=== PATIENT | male | born 1970 | race Caucasian/White ===

== ENCOUNTER 2020-06-01 14:36 | Emergency (ER) | payer MEDICARE, MEDICAID ==
[~2020-06-01 14:36] MED LIST: DICY10CA88 PO; OMEP20CA15 PO
[2020-06-02] MEDS ORDERED: POTA20PA40 PO (14:06)
[2020-06-02] MEDS ORDERED: CARV3.122 PO (14:06)
[2020-06-02] MEDS ORDERED: FURO-150 PO (14:06)
== END 2020-06-01 15:50 | disposition left against medical advice (07) ==
LOC: ER 14:37
DX: Z00.00 Encounter for general adult medical examination without abnormal findings (principal); Z53.21 Procedure and treatment not carried out due to patient leaving prior to being seen by health care provider

== ENCOUNTER 2020-06-02 12:50 | Emergency (ER) | payer MEDICARE, MEDICAID ==
[~2020-06-02] VITALS: Ht 182.9 cm; Wt 115.9 kg
[2020-06-02 13:34] LABS: BASOPHILS # (AUTO) 0.1 X10'3 (0-0.2); BASOPHILS % (AUTO) 0.5 % (0-1); EOSINOPHILS # (AUTO) 0.1 X10'3 (0-0.9); EOSINOPHILS % (AUTO) 0.6 % (0-6); HEMATOCRIT 47.7 % (42.0-52.0); HEMOGLOBIN 15.6 g/dl (14.0-17.9); LYMPHOCYTES # (AUTO) 2.3 X10'3 (1.1-4.8); LYMPHOCYTES % (AUTO) 16.3 % (21-51); MEAN CORPUSCULAR HEMOGLOBIN 31.7 PG (27.0-31.0); MEAN CORPUSCULAR HGB CONC 32.8 g/dL (33.0-36.5); MEAN CORPUSCULAR VOLUME 96.8 FL (78-98); MEAN PLATELET VOLUME 9.1 FL (7.4-10.4); MONOCYTES % (AUTO) 7.2 % (2-12); NEUTROPHILS # (AUTO) 10.7 X10'3 (1.8-7.7); NEUTROPHILS % (AUTO) 75.4 % (42-75); PLATELET COUNT 211 X10'3 (140-440); RED BLOOD COUNT 4.93 X10'6 (4.70-6.10); RED CELL DISTRIBUTION WIDTH 14.2 % (11.5-14.5); WHITE BLOOD COUNT 14.2 X10'3 (4.5-11.0)
[2020-06-02] MEDS ORDERED: furosemide 40mg/4ml inj IV ONE (13:35)
[2020-06-02] MEDS ORDERED: furosemide 20MG tablet PO ONE (13:35)
--- NOTE | 2020-06-02 13:40 | NUR ---
PT CAME IN R/T SHORTNESS OF BREATH WANTS IV PLACE AND HIM TO BE ADMITED BUT PT IS REFUSING IV STATE THAT IF HE HAS A IV I WILL GET A LOT OF ANXITY AND RIP IT OUT AND START BRAKING THING HE SAID HE JUST WANT SOME MEDS TO GO HOME WITH AND BE COMFTABLE DR ADVISED HIM THAT IF HE DOES THAT HE WILL MOST LIKELY VERBLIZED UNDERSTANDING BUT STILL IS REFUSING IV
[2020-06-02 13:43] VITALS: BP 122/92
[2020-06-02 13:44] LABS: ALANINE AMINOTRANSFERASE 44 U/L (12-78); ALBUMIN 3.4 G/DL (3.4-5.0); ALBUMIN/GLOBULIN RATIO 1.1 (1.1-1.5); ALKALINE PHOSPHATASE 81 IU/L (46-116); ANION GAP 10 (8-16); ASPARTATE AMINO TRANSFERASE 33 U/L (10-37); BILIRUBIN,TOTAL 0.9 MG/DL (0.1-1.0); BLOOD UREA NITROGEN 18 MG/DL (7-18); BUN/CREATININE RATIO 11.8 (5.4-32.0); CHLORIDE 109 MMOL/L (99-107); CREATININE 1.52 MG/DL (0.60-1.10); GLUCOSE 120 MG/DL (70-104); POTASSIUM 4.6 MMOL/L (3.5-5.1); SODIUM 143 MMOL/L (135-145); TOTAL CARBON DIOXIDE 24.1 MMOL/L (24-32); TOTAL PROTEIN 6.4 G/DL (6.4-8.2); eGFR 49 ML/MIN
[2020-06-02 13:46] LABS: D-DIMER 1.52 MG/L FEU (0-0.50)
[2020-06-02] MEDS ORDERED: FURO-150 PO (14:06)
[2020-06-02] MEDS ORDERED: CARV3.122 PO (14:06)
[2020-06-02] MEDS ORDERED: POTA20PA40 PO (14:06)
[2020-06-02 15:13] LABS: URINE AMPHETAMINE SCREEN NEGATIVE (Neg); URINE BARBITUATE SCREEN NEGATIVE (Neg); URINE BENZODIAZEPINES SCREEN POSITIVE (Neg); URINE CANNABINOID SCREEN POSITIVE (Neg); URINE COCAINE SCREEN NEGATIVE (Neg); URINE METHADONE SCREEN NEGATIVE (Neg); URINE OPIATE SCREEN POSITIVE (Neg); URINE PHENCYCLIDINE SCREEN NEGATIVE (Neg)
== END 2020-06-02 14:52 | disposition left against medical advice (07) ==
LOC: ER 12:51
DX: J96.20 Acute and chronic respiratory failure, unspecified whether with hypoxia or hypercapnia (principal); I50.9 Heart failure, unspecified; Z72.89 Other problems related to lifestyle; Z79.899 Other long term (current) drug therapy; Z87.01 Personal history of pneumonia (recurrent)
CPT/HCPCS: 36415; 71045; 80053; 80305; 83880; 84484; 85025; 85379; 93005; 99285

== ENCOUNTER 2020-06-04 11:44 | Emergency (ER) | payer MEDICARE, MEDICAID ==
[~2020-06-04] VITALS: Ht 182.9 cm; Wt 113.6 kg
[~2020-06-04 11:44] MED LIST changes: +CARV3.122 PO; +FURO-150 PO; +POTA20PA40 PO
[2020-06-04 13:04] LABS: BASOPHILS # (AUTO) 0.1 X10'3 (0-0.2); BASOPHILS % (AUTO) 0.6 % (0-1); EOSINOPHILS # (AUTO) 0.1 X10'3 (0-0.9); EOSINOPHILS % (AUTO) 0.6 % (0-6); HEMATOCRIT 47.9 % (42.0-52.0); HEMOGLOBIN 15.6 g/dl (14.0-17.9); LYMPHOCYTES # (AUTO) 2.1 X10'3 (1.1-4.8); LYMPHOCYTES % (AUTO) 13.1 % (21-51); MEAN CORPUSCULAR HEMOGLOBIN 31.4 PG (27.0-31.0); MEAN CORPUSCULAR HGB CONC 32.5 g/dL (33.0-36.5); MEAN CORPUSCULAR VOLUME 96.4 FL (78-98); MEAN PLATELET VOLUME 9.1 FL (7.4-10.4); MONOCYTES # (AUTO) 1.3 X10'3 (0-0.9); MONOCYTES % (AUTO) 8.3 % (2-12); NEUTROPHILS # (AUTO) 12.2 X10'3 (1.8-7.7); NEUTROPHILS % (AUTO) 77.4 % (42-75); PLATELET COUNT 196 X10'3 (140-440); RED BLOOD COUNT 4.97 X10'6 (4.70-6.10); RED CELL DISTRIBUTION WIDTH 14.5 % (11.5-14.5); WHITE BLOOD COUNT 15.8 X10'3 (4.5-11.0)
[2020-06-04 13:29] LABS: ALANINE AMINOTRANSFERASE 101 U/L (12-78); ALBUMIN 3.3 G/DL (3.4-5.0); ALBUMIN/GLOBULIN RATIO 1.1 (1.1-1.5); ALKALINE PHOSPHATASE 85 IU/L (46-116); ANION GAP 11 (8-16); ASPARTATE AMINO TRANSFERASE 69 U/L (10-37); BILIRUBIN,TOTAL 0.9 MG/DL (0.1-1.0); BLOOD UREA NITROGEN 22 MG/DL (7-18); BUN/CREATININE RATIO 14.3 (5.4-32.0); CALCIUM 9.1 MG/DL (8.5-10.1); CHLORIDE 108 MMOL/L (99-107); CREATININE 1.54 MG/DL (0.60-1.10); GLUCOSE 105 MG/DL (70-104); POTASSIUM 4.6 MMOL/L (3.5-5.1); SODIUM 142 MMOL/L (135-145); TOTAL CARBON DIOXIDE 23.2 MMOL/L (24-32); TOTAL PROTEIN 6.2 G/DL (6.4-8.2); eGFR 48 ML/MIN
[2020-06-04] MEDS ORDERED: furosemide 10 MG/1 ML 10ml inj IM ONE (14:45)
[2020-06-04] MEDS ORDERED: LORazepam 2 mg/ml vial IM ONE (14:45)
[2020-06-04] MEDS ORDERED: furosemide 20MG tablet PO ONE (14:55)
--- NOTE | 2020-06-04 15:57 | NUR ---
PT IS REFUSING IV IN HIS HAND/ARM. PT HAS BILATERAL LOWER EXTREMITY SWELLING. I ASKED PT IF THE PICC NURSE COULD START AN IV AND HE SAID ONLY ON HIS LOWER LEGS AND FEET.
[2020-06-04] MEDS ORDERED: LORazepam 2 mg/ml vial IV ONE (16:20)
[2020-06-04] MEDS ORDERED: acetaminophen 325mg tablet PO PRN (16:50)
[2020-06-04] MEDS ORDERED: ondansetron/PF 4mg/2ml inj IV PRN (16:50)
[2020-06-04] MEDS ORDERED: magnesium hydroxide 30ml (MOM) UD suspension PO PRN (16:50)
[2020-06-04] MEDS ORDERED: mag hydrox/Alum hydrox/simeth 30ml oral suspension PO PRN (16:50)
--- NOTE | 2020-06-04 17:17 | NUR ---
PT REMOVED NASAL CANULA O2, PT IS NOW 96% RA.
[2020-06-04] MEDS ORDERED: BACL20TA PO (17:38)
[2020-06-04] MEDS ORDERED: PREG75CA75 PO (17:39)
[2020-06-04] MEDS ORDERED: TRAZ-251 PO (17:40)
[2020-06-04] MEDS ORDERED: ALPR1TAB7 PO (17:42)
[2020-06-04] MEDS ORDERED: IPRA3AMP31 IH (17:45)
[2020-06-04] MEDS ORDERED: ipratropium/albuterol 3ml nebule IH PRN (18:15)
[2020-06-04] MEDS ORDERED: baclofen 10mg tablet PO PRN (18:15)
--- NOTE | 2020-06-04 18:42 | NUR ---
Patient's Marina called and gave phone number [phone]
[2020-06-04] MEDS ORDERED: furosemide 40mg/4ml inj IV SCH (20:00)
[2020-06-04] MEDS ORDERED: pregabalin 75mg capsule PO SCH (20:00)
[2020-06-04] MEDS ORDERED: carVEDilol 3.125mg tablet PO SCH (20:00)
[2020-06-04] MEDS ORDERED: FURO-149 PO (20:22)
--- NOTE | 2020-06-04 20:27 | NUR ---
I went to give patient his 1999 meds and he started in on me about not having a room yet, dinner being late and having to have an IV that he didn't want. I explained that I was just helping his nurse out with meds and I know nothing about an IV and I saw him eating dinner. All he wanted to do is yell and complain to me about the poor care he has rec'd. I again advised I have no control over room placement, but I could try to get a hospital bed in the ER for him. This did not make him calm down and advised me he was going to just leave and come back in the morning for treatment. I said if you leave it is against medical advised and the IV will come out and if he comes back tomorrow this whole process starts over. At that point Dr. Jovel came and spoke with him about leaving AMA and advised us to get him AMA paperwork to sign. He allowed me to give him his 2000 meds prior to leaving.
--- NOTE | 2020-06-04 20:32 | NUR ---
Upon entering room to assist with giving medications with KIM Thomson, pt states he wants a bed upstairs now, and feels he is not getting care he needs. Pt reassured he is getting a bed as soon as they are available. Pt states he isnt fed, but pt had been fed a dinner a few minutes prior, pt states he refused an IV and only allowed one in is feet, stating he is against needles and doesn't understand how we don't know that. Pt reassured his blood work shows a real need for the IV and that he is recieving adequate care and we are here to help him. Pt became upset and denied all care given, saying he can't sleep here. Pt ripping off cords and standing up in an aggressive manor. Security called for stand by. Dr. Jovel in to consult with pt who states he wants to go home and he is okay if he ends up dieing. Pt advised of risks of AMA including , worsening in condition, increased SOB, CP and on. Pt states he is a non-believer. Pt IV removed, ride called, AMA paper signed by pt and . Pt discharged home. Upon discharge pt visibly sob.
[2020-06-04 20:40] VITALS: BP 122/80
[2020-06-04] MEDS ORDERED: ALPRAZolam 0.5mg tablet PO PRN (21:00)
[2020-06-04] MEDS ORDERED: traZODone 50mg tablet PO SCH (21:00)
[2020-06-05] MEDS ORDERED: enoxaparin 40mg/0.4ml syringe SUBCUT SCH (08:00)
[2020-06-05] MEDS ORDERED: pantoprazole 40mg Tablet.DR PO SCH (08:00)
[2020-06-05] MEDS ORDERED: potassium Cl 20 mEq SR tablet PO SCH (08:00)
== END 2020-06-04 20:44 | disposition left against medical advice (07) ==
LOC: ER 11:45 → ED HOLD 16:47 → UNDOADMIN 16:47 → UNDODISIN 20:44
DX: I50.21 Acute systolic (congestive) heart failure (principal); R06.02 Shortness of breath; D72.829 Elevated white blood cell count, unspecified; F31.9 Bipolar disorder, unspecified; Z72.89 Other problems related to lifestyle; Z79.899 Other long term (current) drug therapy
CPT/HCPCS: 36415; 71045; 80053; 83880; 84484; 85025; 96372; 96374; 96375; 99285; J1940; J2060; 93005; G0378